=== PATIENT | female | born 1970 | race Caucasian/White ===

== ENCOUNTER 2017-11-22 23:10 | Emergency (ER) | payer BC, OTHER ==
[~2017-11-22] VITALS: Ht 160 cm; Wt 77.1 kg
[2017-11-22 23:41] LABS: Basophils # (auto) 0.1 uL; Basophils % (auto) 0.7 % (0.0-2.0); Eosinophils # (auto) 0.1 uL; Eosinophils % (auto) 0.7 % (0.0-7.0); Hemoglobin 13.2 g/dL (12.2-16.2); Lymphocytes % (auto) 12.4 % (10.0-50.0); Mean Corpuscular Hemoglobin 27.8 pg (28.0-32.0); Mean Corpuscular Volume 84.3 fL (80.0-100.0); Monocytes # (auto) 1.4 uL; Monocytes % (auto) 8.5 % (0.0-12.0); Neutrophils # (auto) 12.8 uL; Neutrophils % (auto) 77.7 % (37.0-80.0); Platelet Count (auto) 329 10^3/uL (140-450); Red Blood Cells 4.74 10^6/uL (4.0-5.20); White Blood Cell 16.5 10^3/uL (4.4-10.8)
[2017-11-22 23:49] LABS: Albumin 3.8 g/dL (3.4-5.0); BUN/Creatinine Ratio 15.3; Calcium 8.7 mg/dL (8.5-10.1); Potassium 3.9 mmol/L (3.5-5.1)
[2017-11-22 23:53] LABS: Bilirubin, Total 0.3 mg/dL (0.2-1.0)
[2017-11-23 00:10] LABS: Urine Bacteria MANY /hpf (None Seen); Urine Blood 3+ /uL (Negative); Urine Mucus FEW (None Seen); Urine Specific Gravity 1.011 (1.001-1.035); Urine WBC 450 /hpf (0 - 5); Urine WBC Clumps PRESENT /hpf (None Seen)
[2017-11-23] MEDS ORDERED: HYDROcodone-ACET 5/325MG TAB PO ONE (01:15)
[2017-11-23] MEDS ORDERED: cefTRIAXone SOD 1,000 MG VL IV ONE (01:15)
[2017-11-23] MEDS ORDERED: PHENAZOPYRIDINE HCL 100 MG TAB PO ONE (01:45)
[2017-11-23 01:49] VITALS: BP 132/86
== END 2017-11-23 01:51 | disposition home or self-care (01) ==
LOC: ER 23:13
DX: N30.00 Acute cystitis without hematuria (principal); D72.829 Elevated white blood cell count, unspecified; Z88.2 Allergy status to sulfonamides
CPT/HCPCS: 36415; 74176; 80053; 81001; 81025; 82150; 83690; 84702; 85025; 96374; 99285; J0696